=== PATIENT | female | born 1965 | race Caucasian/White ===

== ENCOUNTER 2023-09-20 10:19 | Outpatient (CLI) | payer MEDICAID ==
[~2023-09-20 10:19] MED LIST: CLOB15CR4 TOP; LISI20TA28 PO; MULT-1179 PO; PRAV40TA3 PO
== END 2023-09-20 23:59 | disposition home or self-care (01) ==
LOC: MRI 10:19
PROVIDERS: ATTEND Orthopaedic Surgery
DX: S73.191A Other sprain of right hip, initial encounter (principal); M16.11 Unilateral primary osteoarthritis, right hip; M25.551 Pain in right hip; M25.451 Effusion, right hip; X58.XXXA Exposure to other specified factors, initial encounter; Y93.89 Activity, other specified; Y92.89 Other specified places as the place of occurrence of the external cause; Y99.8 Other external cause status
CPT/HCPCS: 73721